=== PATIENT | male | born 1970 | race African-American/Black ===

== ENCOUNTER 2016-04-16 08:46 | Emergency (ER) | payer BC ==
[~2016-04-16] VITALS: Ht 182.9 cm; Wt 87.7 kg
[2016-04-16 11:23] LABS: INFLUENZA A VIRAL ANTIGEN NEGATIVE; INFLUENZA B VIRAL ANTIGEN NEGATIVE
[2016-04-16] MEDS ORDERED: OCEAN NASAL 0.645 ML BOTH NARES (11:31)
[2016-04-16] MEDS ORDERED: FLONASE16 G1 BOTH NARES (11:31)
[2016-04-16 11:46] VITALS: BP 128/70
== END 2016-04-16 11:48 | disposition home or self-care (01) ==
LOC: EME 08:46
PROVIDERS: Nurse Practitioner Family
DX: B34.9 Viral infection, unspecified (principal); R04.0 Epistaxis
CPT/HCPCS: 87502; 99281; 99283

== ENCOUNTER 2017-02-17 23:24 | Emergency (ER) | payer BC ==
[~2017-02-17] VITALS: Ht 182.9 cm; Wt 95.6 kg
[~2017-02-17 23:24] MED LIST: FLONASE16 G1 BOTH NARES; OCEAN NASAL 0.645 ML BOTH NARES
[2017-02-18] MEDS ORDERED: BACTRIM,SEPT1 TABLET PO (00:26)
[2017-02-18] MEDS ORDERED: KEFLEX500 MG PO (00:26)
[2017-02-18 00:39] VITALS: BP 139/95
== END 2017-02-18 00:39 | disposition home or self-care (01) ==
LOC: EME 23:24
DX: L03.112 Cellulitis of left axilla (principal); L91.8 Other hypertrophic disorders of the skin; Z87.891 Personal history of nicotine dependence
CPT/HCPCS: 99281; 99284

== ENCOUNTER → 2017-06-08 | Outpatient (CLI) | payer BC ==
[~2017-06-08] MED LIST changes: +BACTRIM,SEPT1 TABLET PO; +KEFLEX500 MG PO
== END | disposition home or self-care (01) ==
LOC: NUC 10:00
DX: R74.8 Abnormal levels of other serum enzymes (principal)
CPT/HCPCS: 78306; A9503